=== PATIENT | male | born 1995 | race Caucasian/White ===

== ENCOUNTER 2022-08-25 08:21 | Emergency (ER) | payer OTHER ==
[2022-08-25 08:31] VITALS: BP 145/82
[2022-08-25] MEDS ORDERED: CYCLOBENZAPRINE 10 MG TABLET PO STA (09:02)
[2022-08-25] MEDS ORDERED: HYDROcod/ACETAM 5/325 MG TABLET PO STA (09:02)
[2022-08-25] MEDS ORDERED: IBUPROFEN 800 MG TABLET PO STA (09:02)
--- NOTE | 2022-08-25 09:09 | ED Physician Documentation ---
PD HPI BACK PAIN - Stated complaint Stated Complaint: L BACK PX - Chief complaint Chief Complaint: Back Pain - History obtained from History obtained from: Patient - History of Present Illness Timing - onset: Last night Pain level max: 6 Pain level now: 5 Location: Lower, Right, Left Quality: Pain, Aching. No: Spasm, Sharp, Tearing, Throbbing, Dull, Similar to prior episodes, Other Associated symptoms: No: Fever, Weakness, Numbness, Incontinent of urine, Unable to urinate, Hematuria, Incontinent of stool Contributing factors: No: Lifting, Twisting, Trauma, Anticoagulated, Cancer, IVDA, Other - Additional information Additional information: Patient is a 26-year-old male who presents to the emergency department with back pain. He states that it started last night after picking an item up in the pantry. He took Tylenol without relief. Nonradiating. Worse with movement, better with rest. Described as pain and aching. Has had back pain in the past but no surgeries. Review of Systems Constitutional: denies: Fever, Chills GI: denies: Nausea, Vomiting, Diarrhea Skin: denies: Rash Musculoskeletal: denies: Neck pain Neurologic: denies: Focal weakness, Numbness, Headache PD PAST MEDICAL HISTORY - Past Medical History Past Medical History: No - Past Surgical History Past Surgical History: No - Present Medications Home Medications: Ambulatory Orders Medication Instructions Recorded Confirmed Cyclobenzaprine [Flexeril] 10 mg PO TID PRN #20 tablet 08/25/22 HYDROcod/ACETAM 5/325 [Pollock 5/325] 1 - 2 ea PO Q6H PRN #14 tablet 08/25/22 Ibuprofen [Motrin] 800 mg PO Q8H PRN #30 tablet 08/25/22 - Allergies Allergies/Adverse Reactions: Allergies Allergy/AdvReac Type Severity Reaction Status Date / Time No Known Drug Allergies Allergy Verified 08/25/22 08:31 PD ED PE NORMAL - Vitals Vital signs reviewed: Yes - General General: Alert and oriented X 3, No acute distress - Cardiac Cardiac: RRR, Strong equal pulses - Respiratory Respiratory: No respiratory distress, Clear bilaterally - Abdomen Abdomen: Soft, Non tender, Non distended - Back Back: No spinal TTP, Other (No midline tenderness to palpation or percussion. No step-off or deformity. Paraspinal spasm present bilateral lower lumbar.) - Derm Derm: Warm and dry - Extremities Extremities: No edema, No calf tenderness / cord - Neuro Neuro: Alert and oriented X 3, No motor deficit, No sensory deficit, Other (Normal bilateral lower extremity patellar and ankle jerk reflexes. Normal great toe extension bilaterally. no saddle anesthesia) - Psych Psych: Normal mood, Normal affect Results - Vitals Vitals: Vital Signs - 24 hr 08/25/22 08:28 Temperature 36.8 C Heart Rate 89 Respiratory 16 Rate Blood Pressure 145/82 H O2 Saturation 97 Oxygen O2 Source Room air PD Medical Decision Making - ED course Complexity details: considered differential (No cauda equina, no spinal epidural abscess, no fracture, no aortic dissection or evidence of aneursym rupture), d/w patient ED course: 26-year-old male with back pain. No evidence of cauda equina, epidural abscess. No indication for emergent neuroimaging. No focal neurological deficits. We will place on pain medication for home as well as muscle relaxants. We will have him follow-up with his doctor for further care. Patient counseled regarding signs and symptoms for which I believe and urgent re-evaluation would be necessary. Patient with good understanding of and agreement to plan and is comfortable going home at this time This document was made in part using voice recognition software. While efforts are made to proofread this document, sound alike and grammatical errors may occur. Departure - Departure Disposition: 01 Home, Self Care Clinical Impression: Back spasm Back pain Qualifiers: Back pain location: low back pain Chronicity: acute Back pain laterality: bilateral Sciatica presence: without sciatica Qualified Code(s): M54.50 - Low back pain, unspecified Condition: Good Instructions: ED Neck Back Pain General Follow-Up: Your,doctor in 1 week [Other] Prescriptions: Cyclobenzaprine [Flexeril] 10 mg PO TID PRN #20 tablet PRN Reason: Spasms Ibuprofen [Motrin] 800 mg PO Q8H PRN #30 tablet PRN Reason: PAIN &/OR FEVER HYDROcod/ACETAM 5/325 [Pollock 5/325] 1 - 2 ea PO Q6H PRN #14 tablet PRN Reason: Pain Comments: Your prescriptions were sent to [facility] in [place]. [place]. Please return if you worsen. Continue to gently stretch your back at home. I am prescribing a short course of narcotic pain medication for you. These are potentially dangerous and addictive medications that should be used carefully. These medications may constipate you. Take an dulg-xus-wpetxbu stool softener (docusate) twice daily with plenty of water while taking these medications. If you go 24 hours without a bowel movement, take [id number] miralax, per package instructions. Do not drink or drive while taking these medications. If you received narcotic or sedating medications while in the emergency department, do not drive for 24 hours. Store this medication in a safe, secure place and out of reach of children. It is a violation of federal law to give or sell this medication to another person or to use in a manner other than prescribed. The ED will not refill narcotic prescriptions, including prescriptions lost or stolen. To dispose of unwanted medications: 1. [facility] at [address] in [place] has a medication drop box. They accept prescription medications (in pill form) Sunday through Sunday 9:00 a.m. to 5:00 p.m. 2. [facility] accepts prescription medications (in pill form only) for disposal year round. Call for more information. 3. Contact the [facility] for the next [facility] sponsored prescription drug collection event. , [phone], or [phone]; Forms: Activity restrictions Discharge Date/Time: 08/25/22 09:14
== END 2022-08-25 09:14 | disposition home or self-care (01) ==
LOC: ED 08:21
DX: M54.50 Low back pain, unspecified (principal); M62.830 Muscle spasm of back
CPT/HCPCS: 99282; 99283; A9270